=== PATIENT | male | born 1970 | race American Indian/Alaskan Native ===

== ENCOUNTER 2017-11-01 11:27 | Emergency (ER) | payer SELFPAY ==
[2017-11-01 11:38] VITALS: BP 153/88
--- NOTE | 2017-11-01 13:36 | Emergency Department Report ---
Blank Doc - Documentation Documentation: Patient is a 47-year-old male who is presenting with right thigh pain. Patient states he has a history of gout and also has some right foot and ankle pain however he states he is having some medial thigh pain as well. 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 FOCUSED physical exam patient has some tenderness to the anterior proximal thigh extending into the inguinal area. There are no lymph nodes present no erythema consistent with cellulitis. Patient will be sent for ultrasound to rule out DVT. Patient still could have some reactionary lymph node secondary to gout however emergent conditions will be ruled out.
--- NOTE | 2017-11-01 15:03 | Emergency Department Report ---
ED Lower Extremity HPI - General Chief Complaint: Extremity Injury, Lower Stated Complaint: RIGHT LEG/RIGHT FOOT SWOLLEN Time Seen by Provider: 11/01/17 13:14 Source: patient Mode of arrival: Ambulatory Limitations: No Limitations - History of Present Illness Initial Comments: This is a 47-year-old -[place] male who presents with swelling to right thigh and right foot. Patient denies past medical history. Patient states for the past 3 days he has noticed some swelling to right thigh and right foot and ankle. 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 He states he has a history of gout. Patient states he had a flare last month to right foot which improved with elevation and soaks. Patient states this time he swelling is mild but pain is 8 out of 10 on pain scale and worse with walking and temperature. Patient states swelling to right thigh is painless. Patient denies numbness or tingling, warmth, and fever. MD Complaint: thigh injury (right thigh), foot injury (right foot) Onset/Timin -: days(s) Injury: Thigh: Right, Ankle: Right, Foot: Right Type of Injury: unknown Place: home Severity: moderate Severity scale (0 -10): 7 Improves With: nothing Worsens With: weight bearing, movement, palpation Associated Symptoms: swelling, ambulatory. denies: snap/pop sensation, numbness , tingling, unable to bear weight, able to partially bear weight Treatments Prior to Arrival: NSAIDS - Related Data Previous Rx's Medication Instructions Recorded Last Taken Type Cyclobenzaprine [Flexeril 10 MG 10 mg PO TID PRN #15 tablet 12/24/14 Unknown Rx TAB] Ibuprofen [Motrin 600 MG tab] 600 mg PO Q8H PRN #15 tablet 12/24/14 Unknown Rx Amoxicillin [Trimox CAP] 500 mg PO Q8H #30 capsule 02/19/15 Unknown Rx HYDROcodone/APAP 10-325 [[place] 1 each PO Q6HR PRN #12 tablet 02/19/15 Unknown Rx 10/325] Indomethacin 50 mg PO Q8H PRN #15 capsule 11/01/17 Unknown Rx Prednisone [predniSONE 10 mg 10 mg PO .TAPER #1 tab.ds.pk 11/01/17 Unknown Rx (6-Day Pack, 21 Tabs)] Allergies Allergy/AdvReac Type Severity Reaction Status Date / Time No Known Allergies Allergy Verified 12/24/14 16:20 ED Review of Systems ROS: Stated complaint: RIGHT LEG/RIGHT FOOT SWOLLEN Other details as noted in HPI Constitutional: denies: chills, fever Respiratory: denies: cough, shortness of breath, wheezing Cardiovascular: denies: chest pain, palpitations Gastrointestinal: denies: abdominal pain, nausea, vomiting, diarrhea Musculoskeletal: joint swelling (right ankle), arthralgia (right ankle and right foot). denies: back pain Skin: denies: rash, lesions Neurological: denies: headache, weakness, paresthesias Psychiatric: denies: anxiety, depression ED Past Medical Hx - Past Medical History Previous Medical History?: No - Social History Smoking Status: Never Smoker - Medications Home Medications: Home Medications Medication Instructions Recorded Confirmed Last Taken Type Cyclobenzaprine [Flexeril 10 MG 10 mg PO TID PRN #15 tablet 12/24/14 Unknown Rx TAB] Ibuprofen [Motrin 600 MG tab] 600 mg PO Q8H PRN #15 tablet 12/24/14 Unknown Rx Amoxicillin [Trimox CAP] 500 mg PO Q8H #30 capsule 02/19/15 Unknown Rx HYDROcodone/APAP 10-325 [[place] 1 each PO Q6HR PRN #12 tablet 02/19/15 Unknown Rx 10/325] Indomethacin 50 mg PO Q8H PRN #15 capsule 11/01/17 Unknown Rx Prednisone [predniSONE 10 mg 10 mg PO .TAPER #1 tab.ds.pk 11/01/17 Unknown Rx (6-Day Pack, 21 Tabs)] ED Physical Exam - General Limitations: No Limitations General appearance: alert, in no apparent distress, obese - Respiratory Respiratory exam: Present: normal lung sounds bilaterally. Absent: respiratory distress - Cardiovascular Cardiovascular Exam: Present: regular rate, normal rhythm. Absent: systolic murmur, diastolic murmur, rubs, gallop - GI/Abdominal GI/Abdominal exam: Present: soft, normal bowel sounds. Absent: organomegaly, mass - Extremities Exam Extremities exam: Present: full ROM, normal capillary refill. Absent: pedal edema, calf tenderness - Expanded Lower Extremity Exam Right Hip exam: Present: normal inspection, full ROM Upper Leg exam: Present: full ROM, swelling. Absent: tenderness, abrasion, laceration, ecchymosis, deformity, crepidus, dislocation, erythema Knee exam: Present: normal inspection, full ROM Lower Leg exam: Present: normal inspection, full ROM Ankle exam: Present: normal inspection, full ROM Foot/Toe exam: Present: full ROM, tenderness, swelling (swelling and first MP joint) Neuro vascular tendon exam: Present: no vascular compromise Gait: Positive: observed and limited by pain - Neurological Exam Neurological exam: Present: alert, oriented X3, normal gait - Psychiatric Psychiatric exam: Present: normal affect, normal mood - Skin Skin exam: Present: warm, dry, intact, normal color. Absent: rash ED Course Vital Signs 11/01/17 11:34 Temperature 98.3 F Pulse Rate 84 Respiratory 16 Rate Blood Pressure 153/88 O2 Sat by Pulse 97 Oximetry ED Lower Extremity MDM - Radiology Data Radiology results: report reviewed VASCULAR LAB.PRELIMINARY REPORT. RLE VENOUS DUPLEX DONE. NO EVIDENCE OF DVT/SVT IN VESSELS VISUALIZED. - Medical Decision Making This is a 47 y.o. male that presents with right thigh swelling and pain to right foot x 3 days. Hx of gout. Patient is stable and examined by me and Dr. Stewart. Obtained doppler of RLE. VASCULAR LAB.PRELIMINARY REPORT. RLE VENOUS DUPLEX DONE. NO EVIDENCE OF DVT/SVT IN VESSELS VISUALIZED. Given prednisone 50 mg po, ibuprofen 800 mg po once in ER for gout. Discussed plan to start prednisone taper and indomethacin 50 mg po tid with patient. Educated patient and spouse on low purine diet and given handout. Patient agrees to ED plan of care. Discharged home and follow up with PCP in 3 days. Critical care attestation.: If time is entered above; I have spent that time in minutes in the direct care of this critically ill patient, excluding procedure time. ED Disposition Clinical Impression: Gout Qualifiers: Gout site: foot Gout etiology: idiopathic Chronicity: acute Laterality: right Qualified Code(s): M10.071 - Idiopathic gout, right ankle and foot Muscle strain of right thigh Qualifiers: Encounter type: initial encounter Qualified Code(s): S76.911A - Strain of unspecified muscles, fascia and tendons at thigh level, right thigh, initial encounter Disposition: TO HOME OR SELFCARE Is pt being admited?: No Does the pt Need Aspirin: No Condition: Stable Instructions: Acute Gouty Arthritis (ED), Muscle Strain (ED), Low Purine Diet ( ED) Additional Instructions: Avoid foods that have a high purine content such as alcohol, organ meats, and seafood can cause higher risk of elevated uric acid and gout. Reduce intake of alcohol, especially beer, lowers the risk of gout. Reduce the intake of vegetables high in purines such as asparagus, spinach, and mushrooms. Dairy products reduce the risk of gout. Follow up with primary care provider in 2-3 days. Prescriptions: Indomethacin 50 mg PO Q8H PRN #15 capsule PRN Reason: Pain , Severe (7-10) Prednisone [predniSONE 10 mg (6-Day Pack, 21 Tabs)] 10 mg PO .TAPER #1 tab.ds.pk Referrals: [facility] [Outside] - 3-5 Days [facility] [Outside] - 3-5 Days [facility] [Outside] - 3-5 Days Time of Disposition: 16:04 Print Language: BELGIAN
[2017-11-01] MEDS ORDERED: DELTASONE PO ONE (15:59)
[2017-11-01] MEDS ORDERED: MOTRIN PO ONE (16:00)
== END 2017-11-01 16:34 | disposition home or self-care (01) ==
LOC: ED 11:27
DX: S76.911A Strain of unspecified muscles, fascia and tendons at thigh level, right thigh, initial encounter (principal); M10.071 Idiopathic gout, right ankle and foot; X50.1XXA Overexertion from prolonged static or awkward postures, initial encounter; Y93.89 Activity, other specified; Y99.8 Other external cause status; Y92.009 Unspecified place in unspecified non-institutional (private) residence as the place of occurrence of the external cause
CPT/HCPCS: 93971; 99283; J7512